=== PATIENT | female | born 1980 | race Caucasian/White ===

== ENCOUNTER 2024-08-05 02:46 | Emergency (ER) | payer BC ==
[~2024-08-05] VITALS: Ht 160 cm; Wt 65.3 kg
[2024-08-05] MEDS ORDERED: SERT25TA PO (03:24)
[2024-08-05] MEDS ORDERED: LIDOCAINE HCL 1% 20 ML VIAL ONE (04:03)
[2024-08-05] MEDS: LIDOCAINE HCL 1% 20 ML VIAL IJ ONE (04:14)
[2024-08-05] MEDS ORDERED: AMOX-430 PO (04:28)
[2024-08-05] MEDS ORDERED: AMOXICILLIN-CLAVUL 875-125MG TABLET ONE (04:30)
[2024-08-05] MEDS: AMOXICILLIN-CLAVUL 875-125MG TABLET PO ONE (04:30)
[2024-08-05 04:45] VITALS: BP 125/74; TEMP 98.2; O2SAT 100
== END 2024-08-05 04:46 | disposition home or self-care (01) ==
LOC: ER 02:57
DX: S00.451A Superficial foreign body of right ear, initial encounter (principal); F32.A Depression, unspecified; Z79.899 Other long term (current) drug therapy; W45.8XXA Other foreign body or object entering through skin, initial encounter; Y93.89 Activity, other specified; Y92.89 Other specified places as the place of occurrence of the external cause; Y99.8 Other external cause status
CPT/HCPCS: 99284; J3490; A4606; A4663